=== PATIENT | female | born 1955 | race Asian ===

== ENCOUNTER 2020-02-29 14:28 | Emergency (ER) | payer OTHER ==
[~2020-02-29] VITALS: Ht 152.4 cm; Wt 65.1 kg
[~2020-02-29 14:28] MED LIST: ALBU18HF IH; CALCIUM; CHOL200040 PO; FLUT250D INH; GLUC15006 PO; IBAN150T20 PO; LOSA100T14 PO; MONT10TA11 PO; MULT-658 PO; OMEP-110 PO; SIMV20TA19 PO; UBID100C41 PO; VIT C
[2020-02-29 14:32] VITALS: BP 108/63
[2020-02-29] MEDS ORDERED: LIDOCAINE-MPF 1%, 5ML INFIL ONE (15:00)
[2020-02-29] MEDS ORDERED: LIDOCAINE-MPF 1%, 5ML ONE (15:07)
== END 2020-02-29 15:41 | disposition home or self-care (01) ==
LOC: ED 15:30
DX: L03.012 Cellulitis of left finger (principal)
CPT/HCPCS: 10060; 99283